=== PATIENT | female | born 1960 | race Caucasian/White ===

== ENCOUNTER → 2021-01-21 | Outpatient (CLI) | payer OTHER | END | disposition home or self-care (01) | LOC: LAB SHORT 15:40 | DX: R30.0 Dysuria (principal) | CPT/HCPCS: 87086 ==

== ENCOUNTER 2021-08-21 06:07 | Day surgery (SDC) | payer OTHER ==
[~2021-08-21] VITALS: Ht 154.9 cm; Wt 60.0 kg
[~2021-08-21 06:07] MED LIST: ACYC200 PO; ALBU90OI INH; CALCIUM 500+D1 EACH PO; Estrace Vagin42.5 GM VAG; GLUC500 PO; Lisinopril2.5 MG PO
--- NOTE | 2021-08-21 06:38 | NUR ---
Ambulatory in Day SurgeryBair Paws warming gown applied. History, Chart, Medications and Allergies reviewed before start of procedure.Lungs clear T/O to Auscultation. Patient confirms NPO status and agrees with scheduled surgery. Patient States Post-Procedure ride home has been arranged.
== END 2021-08-21 23:15 | disposition home or self-care (01) ==
LOC: ORSCMMR 06:07 → ORD 07:30 → ORSCSDS 08:15 → ORD 08:15 → ORSCMMR 23:15
PROVIDERS: Obstetrics & Gynecology
PROC: 0UDB8ZX Extraction of Endometrium, Via Natural or Artificial Opening Endoscopic, Diagnostic (ICD-10-PCS; principal; 2021-08-21 07:30)
DX: N84.0 Polyp of corpus uteri (principal); I10 Essential (primary) hypertension; Z87.891 Personal history of nicotine dependence; Z85.51 Personal history of malignant neoplasm of bladder; Z79.899 Other long term (current) drug therapy
CPT/HCPCS: 88305; A9270; J0690; J1100; J1885; J2370; J2405; J2704; J3010; J7120

== ENCOUNTER → 2024-06-28 | Outpatient (CLI) | payer OTHER ==
[2024-06-28 16:55] LABS: Influenza A, PCR NEGATIVE (NEGATIVE); Influenza B, PCR NEGATIVE (NEGATIVE); Resp Syncytial Virus, PCR NEGATIVE (NEGATIVE)
[2024-06-28 17:40] LABS: SARS-Cov-2 (COVID-19) PCR, MMC POSITIVE (NEGATIVE)
== END ==
LOC: LAB 09:30 → LAB SHORT 09:30
PROVIDERS: Registered Nurse
DX: R50.9 Fever, unspecified (principal)
CPT/HCPCS: 0241U